=== PATIENT | male | born 1945 | race Caucasian/White ===

== ENCOUNTER → 2016-05-13 | Outpatient (CLI) | payer OTHER | LOC: MMPC 11:11 | DX: G47.30 Sleep apnea, unspecified (principal); E55.9 Vitamin D deficiency, unspecified; M72.2 Plantar fascial fibromatosis; R31.29 Other microscopic hematuria; E83.10 Disorder of iron metabolism, unspecified | CPT/HCPCS: 99213; G0463 ==

== ENCOUNTER → 2016-11-10 | Outpatient (CLI) | payer OTHER ==
[2016-11-10 10:07] LABS: BASOPHILS # (AUTO) 0.03 10*3/UL; BASOPHILS % (AUTO) 0.4 % (0-1); EOSINOPHILS # (AUTO) 0.08 10*3/UL; HEMATOCRIT 44.8 % (42.0-52.0); LYMPHOCYTES # (AUTO) 1.76 10*3/uL; MEAN CORPUSCULAR HEMOGLOBIN 30.1 PG (27-31); MEAN CORPUSCULAR HGB CONC 33.5 g/dL (33-37); MEAN PLATELET VOLUME 10.6 FL (7.4-12.2); MONOCYTES # (AUTO) 0.73 10*3/UL (0.3-0.8); MONOCYTES % (AUTO) 9.4 % (5-15); NEUTROPHILS # (AUTO) 5.12 10*3/UL; NEUTROPHILS % (AUTO) 66.2 % (50-80); RED BLOOD COUNT 4.98 10^6/uL (4.70-6.10)
[2016-11-10 10:08] LABS: BILIRUBIN,URINE NEGATIVE (NEG); CLARITY,URINE CLEAR (CLEAR); COLOR,URINE YELLOW; GLUCOSE, URINE (UA) NEGATIVE (NEG); NITRATE,URINE NEGATIVE (NEG); OCCULT BLOOD,URINE MODERATE (NEG); PH,URINE 5.5 (5.0-8.5); PROTEIN,URINE NEGATIVE (NEG); UROBILINOGEN,URINE 0.2 mg/dL (0.2)
[2016-11-10 10:09] LABS: PLATELET MORPHOLOGY COMMENT NORMAL MORPHOLOGY (NORM); RBC MORPHOLOGY COMMENT NORMAL MORPHOLOGY (NORM); WBC MORPHOLOGY COMMENT NORMAL MORPHOLOGY (NORM)
[2016-11-10 10:11] LABS: URINE SAMPLE TYPE CLEAN CATCH URINE
[2016-11-10 10:24] LABS: BUN/CREATININE RATIO 21.42 (6-20); CALCIUM 9.2 mg/dL (8.7-10.7); CHOL/HDL RATIO 4.36 RATIO (0-4.0); LDL CHOLESTEROL,CALCULATED 97.8 mg/dL
[2016-11-10 10:40] LABS: VITAMIN D 25-HYDROXY 40.1 NG/ML (30-100)
== END ==
LOC: MOB LAB 09:16
DX: R00.2 Palpitations (principal); R31.29 Other microscopic hematuria; E83.10 Disorder of iron metabolism, unspecified; E55.9 Vitamin D deficiency, unspecified; K63.5 Polyp of colon; K42.9 Umbilical hernia without obstruction or gangrene; Z12.5 Encounter for screening for malignant neoplasm of prostate
CPT/HCPCS: 36415; 80053; 80061; 81001; 82306; 82728; 84443; 85025; G0103

== ENCOUNTER → 2016-11-18 | Outpatient (CLI) | payer OTHER ==
--- NOTE | 2016-11-18 10:54 | DI ---
CT ABDOMEN/PELVIS W/O CONTRAST,11/18/2016 9:51 AM: Clinical History: Microscopic hematuria. Previous Exam: None at this facility. Findings: Multiple helically acquired CT images are obtained through the abdomen and pelvis without contrast, a nd demonstrate mild subsegmental atelectasis in the lung bases. The liver, spleen, pancreas and adrenals are unremarkable. There are some stones seen within the gall bladder. There is a punctate stone within the inferior pole of the right kidney. A few peripheral vascular calcifications are seen. The appendix is normal. There is a fat-containing umbilical hernia. Urinary bladder is unremarkable. The prostate is enlarged. Degenerative changes of the hips and spine are noted. There is significant neuroforaminal narrowing o f the lower lumbar spine due to some facet hypertrophy. There is also central canal stenosis. Impression: 1. Punctate left renal parenchymal stones. 2. Prostatic hypertrophy. 3. Cholelithiasis.
== END ==
LOC: CT 09:46
DX: R31.29 Other microscopic hematuria (principal); N20.0 Calculus of kidney; N40.0 Benign prostatic hyperplasia without lower urinary tract symptoms
CPT/HCPCS: 74176